=== PATIENT | male | born 1945 | race African-American/Black ===

== ENCOUNTER 2020-10-12 09:37 | Inpatient (IN) | payer OTHER ==
[2020-10-12 10:34] VITALS: BMI 21.4
[2020-10-12] MEDS ORDERED: MENTHOL/PHENOL 1 EACH UD MM PRN (11:14)
[2020-10-12] MEDS ORDERED: NICOTINE POLACRILEX 2 MG GUM BUC PRN (11:14)
[2020-10-12] MEDS ORDERED: ONDANSETRON *ODT* 4 MG TABLET SL PRN (11:14)
[2020-10-12] MEDS ORDERED: cloNIDine HCL 0.1 MG TABLET PO PRN (11:14)
[2020-10-12] MEDS ORDERED: ACETAMINOPHEN 325 MG TABLET (FP) PO PRN ×2 (11:14)
[2020-10-12] MEDS ORDERED: METHOCARBAMOL 500 MG TABLET PO PRN (11:14)
[2020-10-12] MEDS ORDERED: MAGNESIUM CITRATE 300 ML BOTTLE PO PRN (11:14)
[2020-10-12] MEDS ORDERED: IBUPROFEN 400 MG TABLET (FP) PO PRN (11:14)
[2020-10-12] MEDS ORDERED: diazePAM 5 MG TABLET PO PRN (11:14)
[2020-10-12] MEDS ORDERED: BISMUTH SUBSALICYLATE 524 MG/30 ML PO PRN (11:14)
[2020-10-12] MEDS ORDERED: METHADONE HCL 10 MG TABLET (FOR DETOX USE ONLY) PO ONE (11:30)
[2020-10-12] MEDS ORDERED: diazePAM 5 MG TABLET ONE (12:34)
[2020-10-12] MEDS: diazePAM 5 MG TABLET PO SCH ×3 (12:37→22:26)
[2020-10-12] MEDS ORDERED: METHADONE HCL 10 MG TABLET (FOR DETOX USE ONLY) ONE (12:38)
[2020-10-12] MEDS: PRENATAL VITAMINS W/ FOLIC ACID TABLET (FP) PO SCH (13:22)
[2020-10-12] MEDS: hydrOXYzine PAMOATE 25 MG CAPSULE (FP) PO SCH ×3 (13:23→22:26)
[2020-10-12] MEDS: NICOTINE 21 MG/24 HOURS TOPICAL PATCH TD SCH (13:26)
[2020-10-12 15:02] LABS: HEMATOCRIT 30.7 % (35.4-49); HEMOGLOBIN 10.5 GM/dL (11.7-16.9); MCH 32.1 pg (25.7-33.7); MCHC 34.2 g/dl (32.0-35.9); MEAN PLT VOLUME 9.3 fl (7.5-11.1); PLATELET COUNT 166 K/MM3 (134-434); RBC 3.27 M/mm3 (4.00-5.60); RDW 13.6 % (11.9-15.9); WHITE BLOOD COUNT 5.1 K/mm3 (4.0-10.0)
[2020-10-12 15:11] LABS: CALCIUM 9.7 mg/dL (8.5-10.1)
[2020-10-12 15:12] LABS: BLOOD UREA NITROGEN 15.6 mg/dL (7-18)
[2020-10-12 15:14] LABS: ALBUMIN 3.4 g/dl (3.4-5.0)
[2020-10-12 15:16] LABS: BILIRUBIN,TOTAL 0.6 mg/dL (0.2-1); TOT PROT 7.1 g/dl (6.4-8.2)
[2020-10-12] MEDS: metFORMIN HCL 500 MG TABLET (FP) PO SCH (17:36)
[2020-10-12] MEDS: THIAMINE HCL 100 MG TABLET (FP) PO SCH (22:26)
[2020-10-12] MEDS: MELATONIN 5 MG TABLETS PO SCH (22:26)
[2020-10-13] MEDS: MAG HYDROX/AL HYDROX/SIMETH 30 ML UNIT-DOSE CUP PO PRN (05:45)
[2020-10-13] MEDS: diazePAM 5 MG TABLET PO SCH ×4 (05:45→22:19)
[2020-10-13] MEDS: hydrOXYzine PAMOATE 25 MG CAPSULE (FP) PO SCH ×5 (05:46→22:19)
[2020-10-13] MEDS: metFORMIN HCL 500 MG TABLET (FP) PO SCH ×2 (06:33→18:30)
[2020-10-13] MEDS ORDERED: METHADONE HCL 5 MG TABLET (FOR DETOX USE ONLY) ONE (09:17)
[2020-10-13] MEDS ORDERED: METHADONE HCL 10 MG TABLET (FOR DETOX USE ONLY) ONE (09:17)
[2020-10-13] MEDS ORDERED: METHADONE (DETOX) 20 MG, METHADONE (DETOX) 5 MG PO ONE (10:00)
[2020-10-13] MEDS: CLOPIDOGREL BISULFATE 75 MG TABLET (FP) PO SCH (10:27)
[2020-10-13] MEDS: PRENATAL VITAMINS W/ FOLIC ACID TABLET (FP) PO SCH (10:27)
[2020-10-13] MEDS: amLODIPine BESYLATE 10 MG TABLET (FP) PO SCH (10:27)
[2020-10-13] MEDS: LISINOPRIL 20 MG TABLET PO SCH (10:27)
[2020-10-13] MEDS: NICOTINE 21 MG/24 HOURS TOPICAL PATCH TD SCH (10:31)
[2020-10-13] MEDS: THIAMINE HCL 100 MG TABLET (FP) PO SCH (22:18)
[2020-10-13] MEDS: MELATONIN 5 MG TABLETS PO SCH (22:19)
[2020-10-14] MEDS: diazePAM 5 MG TABLET PO SCH ×3 (05:52→22:22)
[2020-10-14] MEDS: hydrOXYzine PAMOATE 25 MG CAPSULE (FP) PO SCH ×5 (05:53→22:37)
[2020-10-14] MEDS: metFORMIN HCL 500 MG TABLET (FP) PO SCH ×2 (07:37→17:50)
[2020-10-14] MEDS ORDERED: METHADONE HCL 10 MG TABLET (FOR DETOX USE ONLY) PO ONE (10:00)
[2020-10-14] MEDS: LISINOPRIL 20 MG TABLET PO SCH (10:34)
[2020-10-14] MEDS: CLOPIDOGREL BISULFATE 75 MG TABLET (FP) PO SCH (10:34)
[2020-10-14] MEDS: PRENATAL VITAMINS W/ FOLIC ACID TABLET (FP) PO SCH (10:34)
[2020-10-14] MEDS: NICOTINE 21 MG/24 HOURS TOPICAL PATCH TD SCH (10:36)
[2020-10-14] MEDS: amLODIPine BESYLATE 10 MG TABLET (FP) PO SCH (10:36)
[2020-10-14] MEDS ORDERED: cloNIDine HCL 0.1 MG TABLET PO PRN (12:18)
[2020-10-14] MEDS: MAG HYDROX/AL HYDROX/SIMETH 30 ML UNIT-DOSE CUP PO PRN (13:41)
[2020-10-14] MEDS: THIAMINE HCL 100 MG TABLET (FP) PO SCH (22:22)
[2020-10-14] MEDS: MELATONIN 5 MG TABLETS PO SCH (22:24)
[2020-10-15] MEDS: diazePAM 5 MG TABLET PO SCH ×2 (06:19→17:35)
[2020-10-15] MEDS: hydrOXYzine PAMOATE 25 MG CAPSULE (FP) PO SCH ×5 (06:19→22:24)
[2020-10-15] MEDS: metFORMIN HCL 500 MG TABLET (FP) PO SCH ×2 (06:20→17:34)
[2020-10-15] MEDS ORDERED: METHADONE HCL 5 MG TABLET (FOR DETOX USE ONLY) ONE (08:54)
[2020-10-15] MEDS ORDERED: METHADONE HCL 10 MG TABLET (FOR DETOX USE ONLY) ONE (08:55)
[2020-10-15] MEDS ORDERED: METHADONE (DETOX) 10 MG, METHADONE (DETOX) 5 MG PO ONE (10:00)
[2020-10-15] MEDS ORDERED: cloNIDine HCL 0.1 MG TABLET PO PRN (10:28)
[2020-10-15] MEDS: LISINOPRIL 20 MG TABLET PO SCH (10:32)
[2020-10-15] MEDS: PRENATAL VITAMINS W/ FOLIC ACID TABLET (FP) PO SCH (10:32)
[2020-10-15] MEDS: CLOPIDOGREL BISULFATE 75 MG TABLET (FP) PO SCH (10:34)
[2020-10-15] MEDS: NICOTINE 21 MG/24 HOURS TOPICAL PATCH TD SCH (10:34)
[2020-10-15] MEDS: amLODIPine BESYLATE 10 MG TABLET (FP) PO SCH (10:34)
[2020-10-15] MEDS: FERROUS SO4 325 MG TABLET (FP) PO SCH (11:48)
[2020-10-15] MEDS: MAGNESIUM HYDROX 2400MG/30ML ORAL SUSPENSION 30 ML CUP PO PRN (17:34)
[2020-10-15] MEDS: FAMOTIDINE 20 MG TABLET PO SCH ×2 (17:35→22:23)
[2020-10-15] MEDS: MELATONIN 5 MG TABLETS PO SCH (22:23)
[2020-10-15] MEDS: THIAMINE HCL 100 MG TABLET (FP) PO SCH (22:23)
[2020-10-16] MEDS: hydrOXYzine PAMOATE 25 MG CAPSULE (FP) PO SCH ×5 (05:32→22:24)
[2020-10-16] MEDS ORDERED: diazePAM 5 MG TABLET PO ONE (06:00)
[2020-10-16] MEDS: metFORMIN HCL 500 MG TABLET (FP) PO SCH ×2 (06:46→17:51)
[2020-10-16] MEDS ORDERED: METHADONE HCL 10 MG TABLET (FOR DETOX USE ONLY) PO ONE (10:00)
[2020-10-16] MEDS: LISINOPRIL 20 MG TABLET PO SCH (10:43)
[2020-10-16] MEDS: amLODIPine BESYLATE 10 MG TABLET (FP) PO SCH (10:43)
[2020-10-16] MEDS: FAMOTIDINE 20 MG TABLET PO SCH ×2 (10:43→22:24)
[2020-10-16] MEDS: NICOTINE 21 MG/24 HOURS TOPICAL PATCH TD SCH (10:43)
[2020-10-16] MEDS: CLOPIDOGREL BISULFATE 75 MG TABLET (FP) PO SCH (10:43)
[2020-10-16] MEDS: PRENATAL VITAMINS W/ FOLIC ACID TABLET (FP) PO SCH (10:44)
[2020-10-16] MEDS: FERROUS SO4 325 MG TABLET (FP) PO SCH ×2 (10:44→10:45)
[2020-10-16] MEDS: THIAMINE HCL 100 MG TABLET (FP) PO SCH (22:24)
[2020-10-16] MEDS: MELATONIN 5 MG TABLETS PO SCH (22:24)
[2020-10-17] MEDS ORDERED: METHADONE HCL 5 MG TABLET (FOR DETOX USE ONLY) PO ONE (06:00)
[2020-10-17] MEDS: metFORMIN HCL 500 MG TABLET (FP) PO SCH (06:13)
[2020-10-17] MEDS: hydrOXYzine PAMOATE 25 MG CAPSULE (FP) PO SCH ×2 (06:13→09:16)
[2020-10-17] MEDS: FAMOTIDINE 20 MG TABLET PO SCH (09:14)
[2020-10-17] MEDS: LISINOPRIL 20 MG TABLET PO SCH (09:14)
[2020-10-17] MEDS: FERROUS SO4 325 MG TABLET (FP) PO SCH ×2 (09:14→09:15)
[2020-10-17] MEDS: amLODIPine BESYLATE 10 MG TABLET (FP) PO SCH (09:14)
[2020-10-17] MEDS: CLOPIDOGREL BISULFATE 75 MG TABLET (FP) PO SCH (09:14)
[2020-10-17] MEDS: PRENATAL VITAMINS W/ FOLIC ACID TABLET (FP) PO SCH (09:15)
[2020-10-17] MEDS: NICOTINE 21 MG/24 HOURS TOPICAL PATCH TD SCH (09:15)
[2020-10-17] MEDS: MAGNESIUM HYDROX 2400MG/30ML ORAL SUSPENSION 30 ML CUP PO PRN (09:16)
[2020-10-17 09:37] VITALS: BP 127/73; PULSE 108; TEMP 98
== END 2020-10-17 10:14 | disposition home or self-care (01) | DRG 897 ==
LOC: YASAS 09:37 → Y6N 12:26
PROVIDERS: ADMIT Allergy & Immunology; ATTEND Allergy & Immunology
PROC: HZ2ZZZZ Detoxification Services for Substance Abuse Treatment (ICD-10-PCS; principal; 2020-10-12)
DX: F11.23 Opioid dependence with withdrawal (principal); F10.230 Alcohol dependence with withdrawal, uncomplicated; F17.210 Nicotine dependence, cigarettes, uncomplicated; D64.9 Anemia, unspecified; I10 Essential (primary) hypertension; E78.5 Hyperlipidemia, unspecified; E11.51 Type 2 diabetes mellitus with diabetic peripheral angiopathy without gangrene; Z79.84 Long term (current) use of oral hypoglycemic drugs; M19.90 Unspecified osteoarthritis, unspecified site; B18.2 Chronic viral hepatitis C; Z85.46 Personal history of malignant neoplasm of prostate; Z99.89 Dependence on other enabling machines and devices
CPT/HCPCS: 36415; 80053; 82728; 82962; 83540; 83550; 85027; 86780; 93005; 93010; C9803; J0735; U0003; U0005